=== PATIENT | male | born 1950 | race Caucasian/White ===

== ENCOUNTER 2018-04-06 22:06 | Emergency (ER) | payer MEDICARE ==
[2018-04-06 22:13] VITALS: BP 160/80
--- NOTE | 2018-04-06 22:24 | ER Report ---
History and Physical Time Seen By MD: 22:25 Hx. of Stated Complaint: PATIENT IS ON BLOOD THINNERS; COUGHED UP SOME BLOOD TWICE TONIGHT HPI/ROS CHIEF COMPLAINT: coughing with some blood HISTORY OF PRESENT ILLNESS: This is a 67 year old male. 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 He had 3 episodes of coughing when he needed to clear phlegm and had some blood. No blood with coughing since. No vomiting, and no stomach discomfort. He denies other bleeding such as bloody noses. He does bruise easily since he is on Plavix for peripheral arterial disease. No blood in urine and no blood in stools. No fevers or chills. He does smoke and has chronic cough, no worse than usual. No shortness of breath or chest pain. No prior history of bleeding in lungs, but did have pneumonia 4 moths ago. Allergies: Coded Allergies: doxycycline (Verified Allergy, Unknown, 04/06/18) Home Meds Active Scripts Levofloxacin 500 Mg Tab (LEVOFLOXACIN 500 MG TAB) 500 Mg Tablet, 500 MG PO QDAY , #10 TAB 0 Refills Prov:MATT SANTIZO MD 04/07/18 Reported Medications Clopidogrel Bisulfate (CLOPIDOGREL) 75 Mg Tablet, 1 TAB PO QDAY, TAB 04/06/18 Omeprazole (OMEPRAZOLE) 20 Mg Capsule.dr, 1 CAP PO BID, CAP 04/06/18 Clopidogrel Bisulfate (PLAVIX) 75 Mg Tablet, 1 TAB PO QDAY, TAB 04/06/18 Lisinopril (LISINOPRIL) 10 Mg Tablet, 10 MG PO QDAY, TAB 04/06/18 Hctz/Bisoprolol (ZIAC 10-6.25 MG TABLET) 1 Ea Tab, 12.5 MG PO QDAY, TAB 04/06/18 Guaifenesin (Guaifenesin ER) 600 Mg Tab.er.12h, 400 MG PO 04/06/18 Reviewed Nurses Notes: Yes Hx Substance Use Disorder: No Hx Alcohol Use: No Constitutional Vital Sign - Last 24 Hours 04/06/18 22:13 Temp 98.4 Pulse 95 Resp 18 B/P (MAP) 160/80 Pulse Ox 96 O2 Delivery Room Air Physical Exam General Appearance: The patient is alert. No acute distress. Eyes: Pupils are equal, round. Reactive to light. No pallor, injection or icterus. Extraocular movements are intact. ENT: Mucous membranes are moist. Normal oral mucosa. Posterior oropharynx is normal. Normal nasal mucosa. Normal tympanic membranes and canals. Neck: Supple and non tender. No lymphadenopathy. Respiratory: Breathing easily and unlabored. Lungs are clear to auscultation. Cardiovascular: Regular rate and rhythm. No murmurs, gallops or rubs. Normal capillary refill. No edema. Gastrointestinal: Abdomen is soft and non tender. Nondistended. Normal active bowel sounds. No costovertebral angle tenderness with percussion. Neurological: Alert and oriented x3. Skin: Warm and dry. No rashes. Has a few scattered bruises on his arms. Musculoskeletal: Extremities are nontender. No tenderness in palpation of the cervical, thoracic and lumbar spine. DIFFERENTIAL DIAGNOSIS: After history and physical exam, differential diagnosis was considered for hemoptysis, likely surface vessel that burst when he was coughing and bleeding on the blood thinner but we'll look for pneumonia, and other sources of bleeding including looking at the blood counts. Medical Decision Making Data Points Result Diagram: 04/06/18 2300 04/06/18 2300 Laboratory Hematology Test 04/06/18 23:00 Red Blood Count 4.33 M/uL (4.00-5.60) Mean Corpuscular Volume 65.2 fL (80.0-96.0) Mean Corpuscular Hemoglobin 21.6 pg (26.0-33.0) Mean Corpuscular Hemoglobin Concent 33.1 g/dL (32.0-36.0) Red Cell Distribution Width 18.2 % (11.5-14.5) Mean Platelet Volume 6.5 fL (7.2-11.1) Neutrophils (%) (Auto) 57.7 % (39.4-72.5) Lymphocytes (%) (Auto) 34.2 % (17.6-49.6) Monocytes (%) (Auto) 5.6 % (4.1-12.4) Eosinophils (%) (Auto) 2.1 % (0.4-6.7) Basophils (%) (Auto) 0.4 % (0.3-1.4) Nucleated RBC Relative Count (auto) 0.0 /100WBC Neutrophils # (Auto) 4.2 K/uL (2.0-7.4) Lymphocytes # (Auto) 2.5 K/uL (1.3-3.6) Monocytes # (Auto) 0.4 K/uL (0.3-1.0) Eosinophils # (Auto) 0.2 K/uL (0.0-0.5) Basophils # (Auto) 0.0 K/uL (0.0-0.1) Nucleated RBC Absolute Count (auto) 0.00 K/uL Peripheral Blood Smear Yes Y/N Prothrombin Time 13.0 seconds (12.0-14.4) Prothromb Time International Ratio 0.98 Activated Partial Thromboplast Time 34 seconds (23-35) Urine Color Straw Urine Clarity Clear Urine pH 7.0 pH (4.8-9.5) Urine Specific [employer] 1.004 Urine Protein Negative mg/dL (NEGATIVE) Urine Glucose (UA) Negative mg/dL (NEGATIVE) Urine Ketones Negative mg/dL (NEGATIVE) Urine Blood Negative (NEGATIVE) Urine Nitrite Negative (NEGATIVE) Urine Bilirubin Negative (NEGATIVE) Urine Urobilinogen Negative mg/dL (0.2-1.9) Urine Leukocyte Esterase Negative (NEGATIVE) Urine RBC None /HPF (0-2/HPF) Urine WBC <1 /HPF (0-5/HPF) Urine Squamous Epithelial Cells None /LPF (</=FEW) Urine Bacteria Negative /HPF (NONE-FEW) Urine Mucus None /HPF (NONE-FEW) Sodium Level 127 mmol/L (137-145) Potassium Level 3.9 mmol/L (3.5-5.0) Chloride Level 90 mmol/L (98-107) Carbon Dioxide Level 28 mmol/L (22-30) Blood Urea Nitrogen 11 mg/dl (9-21) Creatinine 1.00 mg/dl (0.66-1.25) Glomerular Filtration Rate Calc > 60.0 Random Glucose 89 mg/dl (75-110) Calcium Level 9.4 mg/dl (8.4-10.2) Total Bilirubin 0.3 mg/dl (0.2-1.3) Aspartate Amino Transf (AST/SGOT) 18 U/L (0-35) Alanine Aminotransferase (ALT/SGPT) 18 U/L (0-56) Alkaline Phosphatase 105 U/L (0-126) Total Protein 6.9 gm/dl (6.3-8.2) Albumin 3.8 g/dl (3.5-5.0) Chemistry Test 04/06/18 23:00 White Blood Count 7.3 k/uL (4.5-11.0) Red Blood Count 4.33 M/uL (4.00-5.60) Hemoglobin 9.3 g/dL (14.0-18.0) Hematocrit 28.2 % (42.0-52.0) Mean Corpuscular Volume 65.2 fL (80.0-96.0) Mean Corpuscular Hemoglobin 21.6 pg (26.0-33.0) Mean Corpuscular Hemoglobin Concent 33.1 g/dL (32.0-36.0) Red Cell Distribution Width 18.2 % (11.5-14.5) Platelet Count 517 K/uL (150-450) Mean Platelet Volume 6.5 fL (7.2-11.1) Neutrophils (%) (Auto) 57.7 % (39.4-72.5) Lymphocytes (%) (Auto) 34.2 % (17.6-49.6) Monocytes (%) (Auto) 5.6 % (4.1-12.4) Eosinophils (%) (Auto) 2.1 % (0.4-6.7) Basophils (%) (Auto) 0.4 % (0.3-1.4) Nucleated RBC Relative Count (auto) 0.0 /100WBC Neutrophils # (Auto) 4.2 K/uL (2.0-7.4) Lymphocytes # (Auto) 2.5 K/uL (1.3-3.6) Monocytes # (Auto) 0.4 K/uL (0.3-1.0) Eosinophils # (Auto) 0.2 K/uL (0.0-0.5) Basophils # (Auto) 0.0 K/uL (0.0-0.1) Nucleated RBC Absolute Count (auto) 0.00 K/uL Peripheral Blood Smear Yes Y/N Prothrombin Time 13.0 seconds (12.0-14.4) Prothromb Time International Ratio 0.98 Activated Partial Thromboplast Time 34 seconds (23-35) Urine Color Straw Urine Clarity Clear Urine pH 7.0 pH (4.8-9.5) Urine Specific [employer] 1.004 Urine Protein Negative mg/dL (NEGATIVE) Urine Glucose (UA) Negative mg/dL (NEGATIVE) Urine Ketones Negative mg/dL (NEGATIVE) Urine Blood Negative (NEGATIVE) Urine Nitrite Negative (NEGATIVE) Urine Bilirubin Negative (NEGATIVE) Urine Urobilinogen Negative mg/dL (0.2-1.9) Urine Leukocyte Esterase Negative (NEGATIVE) Urine RBC None /HPF (0-2/HPF) Urine WBC <1 /HPF (0-5/HPF) Urine Squamous Epithelial Cells None /LPF (</=FEW) Urine Bacteria Negative /HPF (NONE-FEW) Urine Mucus None /HPF (NONE-FEW) Glomerular Filtration Rate Calc > 60.0 Calcium Level 9.4 mg/dl (8.4-10.2) Total Bilirubin 0.3 mg/dl (0.2-1.3) Aspartate Amino Transf (AST/SGOT) 18 U/L (0-35) Alanine Aminotransferase (ALT/SGPT) 18 U/L (0-56) Alkaline Phosphatase 105 U/L (0-126) Total Protein 6.9 gm/dl (6.3-8.2) Albumin 3.8 g/dl (3.5-5.0) Coagulation Test 04/06/18 23:00 Prothrombin Time 13.0 seconds Prothromb Time International Ratio 0.98 Activated Partial Thromboplast Time 34 seconds Urinalysis Test 04/06/18 23:00 Urine Color Straw Urine Clarity Clear Urine pH 7.0 pH (4.8-9.5) Urine Specific [employer] 1.004 Urine Protein Negative mg/dL (NEGATIVE) Urine Glucose (UA) Negative mg/dL (NEGATIVE) Urine Ketones Negative mg/dL (NEGATIVE) Urine Blood Negative (NEGATIVE) Urine Nitrite Negative (NEGATIVE) Urine Bilirubin Negative (NEGATIVE) Urine Urobilinogen Negative mg/dL (0.2-1.9) Urine Leukocyte Esterase Negative (NEGATIVE) Urine RBC None /HPF (0-2/HPF) Urine WBC <1 /HPF (0-5/HPF) Urine Squamous Epithelial Cells None /LPF (</=FEW) Urine Bacteria Negative /HPF (NONE-FEW) Urine Mucus None /HPF (NONE-FEW) EKG/Imaging Imaging TWO VIEW CHEST 04/06/2018 10:34 PM. INDICATION: coughing with blood COMPARISON: None available. FINDINGS: Lungs are overall hyperexpanded. There is dense opacification of the left lower lobe. The probable nipple shadow over the right lower lung. No definite pneumothorax or pleural effusion. Pulmonary vasculature is unremarkable. Heart size is normal. IMPRESSION: 1. Dense opacification of the left lower lung represent pneumonia or atelectasis. Consider follow-up evaluation at resolution of symptoms versus further characterization with CT to exclude underlying lesion. 2. Probable chronic hyperexpansion. Report Dictated By: Franco Ledesma MD at 04/06/2018 11:[address] PE DATE: 04/07/2018 12:06 AM INDICATION: Hemoptysis, abnormal chest radiographs. COMPARISON: Same-day radiographs. TECHNIQUE: Axial CT angiogram was obtained through the chest with intravenous contrast. Sagittal and coronal MPR and MIP coronal reformations were also generated. 75 mL isovue 370. One of the following dose optimization techniques was utilized in the performance of this exam: Automated exposure control; adjustment of the mA and/or kV according to the patient's size; or use of an iterative reconstruction technique. Specific details can be referenced in the facility's radiology CT exam operational policy. FINDINGS: Thyroid / Thoracic Inlet: No visualized thyroid nodule or supraclavicular lymphadenopathy. Pulmonary Arteries: No pulmonary embolism. Heart and Aorta: Normal-size heart with no pericardial effusion. Coronary artery calcifications. Nonaneurysmal thoracic aorta with mild atherosclerosis. Mediastinum and Michelle: There is mediastinal. Example subaortic node on image 144 series 4 measures 31 x 16 mm. Lungs and Pleura: Near complete consolidation of the there is near complete consolidation of the left lower lobe base. Adjacent septal thickening. The associated bronchus is occluded. No well-defined focal mass. Calcified granulomas noted in the left lower lobe. Right lower lobe nodule on image 291 series 4 measures 9 x 6 mm. Mild emphysema. Breast and Axilla: No axillary lymphadenopathy. Upper Abdomen: Probable exophytic cyst at the posterior aspect of the left kidney. There is an ovoid exophytic lesion at the superior pole of the right kidney there are measures 2.8 cm in diameter and greater than simple fluid density. Bones and Soft Tissues: No suspicious osseous or soft tissue abnormality. IMPRESSION: 1. No pulmonary embolism. 2. Near complete consolidation of the left lower lobe base with occlusion of the associated bronchus. No well-demonstrated associated mass, though it is not excluded, and the patient may benefit from short-term follow-up and/or bronchoscopy. Infection, aspiration or mucous plugging are also considerations. 3. Nonspecific mediastinal adenopathy. Recommend attention to this on follow- up. 4. 9 x 6 mm right lower lobe pulmonary nodule. Current Fleischner Society recommendations for incidental pulmonary nodules 6-8mm (average of long and short axis): - In a patient with low risk for malignancy (i.e., minimal or absent smoking history, no known malignancy or other risk factors): Noncontrast CT at 6-12 months, then consider CT at 18-24 months. - In a patient at high risk for malignancy (e.g., smoking history and/or other known risk factors): Noncontrast CT at 6-12 months, then CT at 18-24 months. If unchanged no further follow-up necessary. Matilde Yanez, Bhargavi Blanco, Govind J, et al. Guidelines for management of small pulmonary nodules detected on CT images: from the Fleischner society 2017. 5. 2.8 cm exophytic lesion at the superior pole right kidney. This measures greater than simple fluid density end could represent a proteinaceous/ hemorrhagic cyst or a solid lesion. Consider nonemergent evaluation with ultrasound. Report Dictated By: Franco Ledesma MD at 04/07/2018 12:06 AM ED Course/Re-evaluation Clinical Indication for ER IV: Hydration, IV Access ED Course After initial evaluation, vitals are stable. The patient feels alright and just stopped because he was told it was a good idea with coughing blood. Labs obtained with IV start and chest x-ray ordered. He has mild anemia, unsure what his baseline is. Platelets elevated, likely due to smoking. Normal white blood cell count and differential. His sodium was low at 127, the other electrolytes, kidney function and liver function was normal. Urinalysis and coagulation factors were normal. His chest x-ray shows consolidation and some effusion in left lower lobe. He does not remember where his prior pneumonia was. CTA was done. Negative for pulmonary embolism. He has consolidation of the lower lobe on the left. Can not rule out mass, mucous plugging, infection, aspiration. Will begin treatment with Levofloxacin 500mg once a day. He will need to follow-up as soon as he returns home. He also has non-specific mediastinal adenopathy. Has a lesion on the lower pole of the right kidney that will need follow-up as well. Discussed the results with the patient. We talked about the need for follow-up. He really would like to deliver his load and feels fine at this time. Discussed that if he is worsening, such as fevers/chills, short of breath, coughing up more blood, or other problems that he needs to stop and seek medical attention sooner. I would not recommend any changes to his mediation at this time other than adding the antibiotic. He has his inhalers that he can continue to use as well. Decision to Disposition Date: Apr 07, 2018 Decision to Disposition Time: 00:52 Depart Departure Latest Vital Signs Vital Signs Date Time Temp Pulse Resp B/P (MAP) Pulse Ox O2 Delivery O2 Flow Rate FiO2 04/06/18 22:13 98.4 95 18 160/80 96 Room Air Impression: Primary Impression: Lung consolidation Additional Impression: Hemoptysis, unspecified Condition: Condition Unchanged Disposition: HOME OR SELF-CARE New Scripts Levofloxacin 500 Mg Tab (LEVOFLOXACIN 500 MG TAB) 500 Mg Tablet 500 MG PO QDAY, #10 TAB 0 Refills Prov: MATT SANTIZO MD 04/07/18 Patient Instructions: Community Acquired Pneumonia (ED) Additional Instructions: Your lung has fluid in the left lower lobe. We do not know for sure what the cause of this is. It could represent a pneumonia, but we need you to see your regular doctor for follow-up in the next week for re-evaluation. Sooner if you are feeling worse. We are going to start you on the antibiotic Levofloxacin 500mg once a day for 10 days. You will need to stop and seek further medical attention right away should you have fevers/chills, shortness of breath, or worsening of coughing with blood production. Your doctor will need to repeat imaging and labs testing as we discussed. Your sodium was low, and we replaced this with the IV fluids we gave. You can also start eating some extra salty snacks to get more sodium through your diet until you see your doctor. Problem Qualifiers MATT SANTIZO MD Apr 06, 2018 22:24
[2018-04-06] MEDS ORDERED: ZIA10 PO (22:29)
[2018-04-06] MEDS ORDERED: CLOP75TA43 PO (22:29)
[2018-04-06] MEDS ORDERED: OMEP-125 PO (22:29)
[2018-04-06] MEDS ORDERED: LISI-362 PO (22:29)
[2018-04-06] MEDS ORDERED: CLOP75TA PO (22:29)
[2018-04-06] MEDS ORDERED: GUAI600T84 PO (22:29)
[2018-04-06 23:09] LABS: PLATELET COUNT, AUTOMATED 517 K/uL (150-450)
--- NOTE | 2018-04-06 23:17 | RADIOLOGY IMAGING REPORT ---
FACILITY: [facility] [place] PATIENT NAME: Fermín Wolff : 1950 MR: [id number] V: [id number] EXAM DATE: ORDERING PHYSICIAN: MATT SANTIZO TECHNOLOGIST: Location: [facility] [place] Patient: Fermín Wolff : 1950 Visit/Account:[id number] Date of Sevice: 04/06/2018 TWO VIEW CHEST 04/06/2018 10:34 PM. INDICATION: coughing with blood COMPARISON: None available. FINDINGS: Lungs are overall hyperexpanded. There is dense opacification of the left lower lobe. The probable nipple shadow over the right lower lung. No definite pneumothorax or pleural effusion. Pu lmonary vasculature is unremarkable. Heart size is normal. IMPRESSION: 1. Dense opacification of the left lower lung represent pneumonia or atelectasis. Consider follow-u p evaluation at resolution of symptoms versus further characterization with CT to exclude underlying lesion. 2. Probable chronic hyperexpansion. Report Dictated By: Franco Ledesma MD at 04/06/2018 11:11 PM Report E-Signed By: Franco Ledesma MD at 04/06/2018 11:14 PM WSN:[id number]
[2018-04-06 23:19] LABS: INR 0.98
[2018-04-06] MEDS ORDERED: NS(*) 0.9% 1000 ML BAG 1,000 ML IV ONE (23:25)
[2018-04-06] MEDS ORDERED: NS 0.9% 25 ML BAG 50 ML ONE (23:34)
[2018-04-06] MEDS ORDERED: IOPAMIDOL 76% 75 ML INFUS BTL 75 ML ONE (23:34)
--- NOTE | 2018-04-07 00:28 | RADIOLOGY IMAGING REPORT ---
FACILITY: [facility] PATIENT NAME: Fermín Wolff : 1950 MR: [id number] V: [id number] EXAM DATE: ORDERING PHYSICIAN: MATT SANTIZO TECHNOLOGIST: Location: [facility] Patient: Fermín Wolff : 1950 Visit/Account:[id number] Date of Sevice: 04/06/2018 CT PE DATE: 04/07/2018 12:06 AM INDICATION: Hemoptysis, abnormal chest radiographs. COMPARISON: Same-day radiographs. TECHNIQUE: Axial CT angiogram was obtained through the chest with intravenous contrast. Sagittal an d coronal MPR and MIP coronal reformations were also generated. 75 mL isovue 370. One of the follow ing dose optimization techniques was utilized in the performance of this exam: Automated exposure con trol; adjustment of the mA and/or kV according to the patient's size; or use of an iterative reconst ruction technique. Specific details can be referenced in the facility's radiology CT exam operationa l policy. FINDINGS: Thyroid / Thoracic Inlet: No visualized thyroid nodule or supraclavicular lymphadenopathy. Pulmonary Arteries: No pulmonary embolism. Heart and Aorta: Normal-size heart with no pericardial effusion. Coronary artery calcifications. N onaneurysmal thoracic aorta with mild atherosclerosis. Mediastinum and Michelle: There is mediastinal. Example subaortic node on image 144 series 4 measures 31 x 16 mm. Lungs and Pleura: Near complete consolidation of the there is near complete consolidation of the left lower lobe base. Adjacent septal thickening. The associated bronchus is occluded. No well-defined focal mass. Calcified granulomas noted in the left lower lobe. Right lower lobe nodule on image 29 1 series 4 measures 9 x 6 mm. Mild emphysema. Breast and Axilla: No axillary lymphadenopathy. Upper Abdomen: Probable exophytic cyst at the posterior aspect of the left kidney. There is an ovoid exophytic lesion at the superior pole of the right kidney there are measures 2.8 cm in diameter and greater than simple fluid density. Bones and Soft Tissues: No suspicious osseous or soft tissue abnormality. IMPRESSION: 1. No pulmonary embolism. 2. Near complete consolidation of the left lower lobe base with occlusion of the associated bronchus . No well-demonstrated associated mass, though it is not excluded, and the patient may benefit from short-term follow-up and/or bronchoscopy. Infection, aspiration or mucous plugging are also consider ations. 3. Nonspecific mediastinal adenopathy. Recommend attention to this on follow-up. 4. 9 x 6 mm right lower lobe pulmonary nodule. Current Fleischner Society recommendations for incid ental pulmonary nodules 6-8mm (average of long and short axis): - In a patient with low risk for malignancy (i.e., minimal or absent smoking history, no known malig german or other risk factors): Noncontrast CT at 6-12 months, then consider CT at 18-24 months. - In a patient at high risk for malignancy (e.g., smoking history and/or other known risk factors): Noncontrast CT at 6-12 months, then CT at 18-24 months. If unchanged no further follow-up necessary. Matilde H, Bhargavi D, Rigobertoo J, et al. Guidelines for management of small pulmonary nodules detected on CT images: from the Fleischner society 2017. 5. 2.8 cm exophytic lesion at the superior pole right kidney. This measures greater than simple flu id density end could represent a proteinaceous/hemorrhagic cyst or a solid lesion. Consider nonemerg ent evaluation with ultrasound. Report Dictated By: Franco Ledesma MD at 04/07/2018 12:06 AM Report E-Signed By: Franco Ledesma MD at 04/07/2018 12:23 AM WSN:[id number]
[2018-04-07] MEDS ORDERED: LEVOFLOXACIN 500 MG TAB PO ONE (00:50)
[2018-04-07] MEDS ORDERED: LEVO500T83 PO (01:03)
== END 2018-04-07 01:11 | disposition home or self-care (01) ==
LOC: ER 22:31
DX: J18.1 Lobar pneumonia, unspecified organism (principal); R04.2 Hemoptysis
CPT/HCPCS: 71046; 71275; 81001; 85025; 85610; 85730; 96360; 96361; 99284; A9270; J7030; Q9967; 82040; 82247; 82310; 82374; 82435; 82565; 82947; 84075; 84132; 84155; 84295; 84450; 84460; 84520